=== PATIENT | male | born 1950 | race African-American/Black ===

== ENCOUNTER 2017-06-27 21:49 | Emergency (ER) | payer OTHER ==
[~2017-06-27] VITALS: Ht 182.9 cm; Wt 113.4 kg
[~2017-06-27 21:49] MED LIST: ACYCLOVIR 400400 MG PO; ASPIRIN81 M2 PO; COREG25 MG PO; D3 + K2 DOTS 11 EACH PO; HYDROCHLOROTHIA25 M2 PO; INDOMETHACIN 2525 MG PO; KLOR-CON 1010 MEQ PO; PROAIR HFA8.5 GM INH; VENTOLIN HFA 1818 GM INH
== END 2017-06-28 03:00 ==
LOC: ER 21:49
DX: I46.9 Cardiac arrest, cause unspecified (principal); J44.9 Chronic obstructive pulmonary disease, unspecified; I25.10 Atherosclerotic heart disease of native coronary artery without angina pectoris; C90.00 Multiple myeloma not having achieved remission; I11.0 Hypertensive heart disease with heart failure; I50.9 Heart failure, unspecified; Z88.8 Allergy status to other drugs, medicaments and biological substances